=== PATIENT | female | born 1985 ===

== ENCOUNTER → 2018-08-18 21:50 | Outpatient (REF) | payer OTHER, SELFPAY ==
[2018-08-18 23:33] LABS: Vitamin D 25 Hydroxy (D3) 34.5 ng/mL (30.0-100.0)
[2018-08-19 00:38] LABS: Hemoglobin A1C% w Est Avg Glu 4.9 % (4.0-6.0)
[2018-08-21 16:19] LABS: Progesterone 3.8 ng/mL
[2018-08-21 21:16] LABS: Estrogen 236.9 pg/mL
[2018-08-22 16:08] LABS: Estradiol 63 pg/mL
== END ==
LOC: LAB 21:50
PROVIDERS: Visit Provider Acupuncturist
DX: Z00.00 Encounter for general adult medical examination without abnormal findings (principal)
CPT/HCPCS: 36415; 82306; 82670; 82672; 83036; 84144

== ENCOUNTER → 2018-08-19 21:13 | Outpatient (REF) | payer SELFPAY | LOC: LAB 21:13 | PROVIDERS: Visit Provider Acupuncturist | DX: Z00.00 Encounter for general adult medical examination without abnormal findings (principal) ==